=== PATIENT | female | born 1965 | race Caucasian/White ===

== ENCOUNTER 2017-06-21 15:16 | Emergency (ER) | payer BC ==
[2017-06-21 15:32] VITALS: BP 106/72; PULSE 63; TEMP 98.3; BMI 20.5
[2017-06-21] MEDS ORDERED: SILVER SULFADIAZINE 1% TOP CREAM 50 GM JAR TP ONE ×2 (16:19→16:29)
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
[2017-06-21] MEDS ORDERED: DIPHTH,PERTUSS(ACELL),TET 0.5 ML DISP.SYRIN IM ONE ×2 (16:23→16:39)
== END 2017-06-21 16:51 | disposition home or self-care (01) ==
LOC: FER 15:16 → EDBD 15:16 → MERGE 15:16 → FER 16:51
PROC: 2W2EX4Z Dressing of Right Hand using Bandage (ICD-10-PCS; principal; 2017-06-21)
DX: T23.001A Burn of unspecified degree of right hand, unspecified site, initial encounter (principal); X13.1XXA Other contact with steam and other hot vapors, initial encounter; Y93.G3 Activity, cooking and baking; Y92.000 Kitchen of unspecified non-institutional (private) residence as the place of occurrence of the external cause
CPT/HCPCS: 99281-25

== ENCOUNTER 2021-05-20 18:45 | Emergency (ER) | payer BC ==
[2021-05-20 18:55] VITALS: BP 91/57; PULSE 79; TEMP 98.7; BMI 20.8
[2021-05-20 19:27] LABS: EPITHELIAL CELLS FEW /hpf
[2021-05-20 19:28] LABS: URINE MUCUS 1+
== END 2021-05-20 19:30 | disposition home or self-care (01) ==
LOC: FER 18:45
DX: N39.0 Urinary tract infection, site not specified (principal); R31.9 Hematuria, unspecified
CPT/HCPCS: 81003; 81015; 87086; 99283-25

== ENCOUNTER 2021-07-09 16:36 | Emergency (ER) | payer BC ==
[2021-07-09 16:40] VITALS: BP 113/58; PULSE 80; TEMP 98.2; BMI 19.6
== END 2021-07-09 18:05 | disposition home or self-care (01) ==
LOC: FER 16:36
DX: M25.572 Pain in left ankle and joints of left foot (principal)
CPT/HCPCS: 73610-TC-LT-FY; 99283-25